=== PATIENT | female | born 1935 | race Caucasian/White ===

== ENCOUNTER → 2021-04-12 | Outpatient (CLI) | payer MEDICARE ==
[~2021-04-12] MED LIST: ASPIRIN E.C. 8181 MG PO; CIPRO 500MG TA500 MG PO; FLAGYL500 MG PO; LEXAPRO 10MG10 MG PO; TAMOXIFEN CITRA20 MG PO; ZESTRIL40 MG PO
== END ==
LOC: COL.RAD 15:30
DX: R13.12 Dysphagia, oropharyngeal phase (principal)

== ENCOUNTER 2021-04-27 09:45 | Outpatient (RCR) | payer MEDICARE | END 2021-06-21 | disposition home or self-care (01) | LOC: WSST | DX: R13.12 Dysphagia, oropharyngeal phase (principal) ==

== ENCOUNTER → 2021-09-22 | Outpatient (CLI) | payer MEDICARE | LOC: COL.RAD 08:22 | DX: G31.9 Degenerative disease of nervous system, unspecified (principal) | CPT/HCPCS: A9575 ==